=== PATIENT | male | born 1945 | race Caucasian/White ===

== ENCOUNTER 2017-02-01 19:57 | Inpatient (IN) | payer OTHER ==
[~2017-02-01] VITALS: Ht 182.9 cm; Wt 446.3 kg
[2017-02-01 19:57] VITALS: BP 93/63
--- NOTE | 2017-02-01 19:57 | NUR ---
BIBA TO ER BED 8
--- NOTE | 2017-02-01 20:03 | NUR ---
71 Y/O M BIBA FROM HOME W/C/O L SHOULDER/L UPPER BACK PAIN WHICH RADIATES TO L ARM. DENIES ANY CHEST PAIN. VSS, PT IN O2 2 LT. MED HX COPD, AND PROSTATE CANCER.
[2017-02-01] MEDS ORDERED: KETOROLAC 30 MG/ML VIAL IVP ONE (20:15)
[2017-02-01] MEDS ORDERED: NACL 0.9% 1,000 ML IV ONE (20:15)
[2017-02-01] MEDS ORDERED: ASPIRIN 81 MG TAB.CHEW PO ONE (20:15)
--- NOTE | 2017-02-01 20:28 | NUR ---
LAB AT BEDSIDE
[2017-02-01] MEDS ORDERED: TAMS0.4C96 PO (20:39)
[2017-02-01] MEDS ORDERED: ATOR20TA PO (20:39)
[2017-02-01] MEDS ORDERED: TYLENOL PM PO (20:39)
[2017-02-01] MEDS ORDERED: [UNRECOGNIZED DRUG - CODE] PO (20:39)
[2017-02-01] MEDS ORDERED: [UNRECOGNIZED DRUG - CODE] PO (20:39)
[2017-02-01] MEDS ORDERED: ASPI81CT89 PO (20:39)
[2017-02-01] MEDS ORDERED: ALBU1SPR IH (20:39)
[2017-02-01 20:44] LABS: BASOPHILS # (AUTO) 0.4 K/uL (0.00-0.22); EOSINOPHILS # (AUTO) 0.6 K/uL (0-0.4); HEMATOCRIT 36.2 % (36-52); HEMOGLOBIN 12.2 g/dL (12.0-18.0); LYMPHOCYTES # (AUTO) 2.6 K/uL (2.0-11.5); MEAN CORPUSCULAR HEMOGLOBIN 29 pg (27-31); MEAN CORPUSCULAR HGB CONC 34 g/dL (33-37); MEAN CORPUSCULAR VOLUME 86 fL (80-94); MONOCYTES # (AUTO) 0.7 K/uL (0.8-1.0); NEUTROPHILS # (AUTO) 7.3 K/uL (1.8-7.7); PLATELET COUNT (AUTO) 345 K/uL (140-450); RED BLOOD CELL COUNT(AUTO) 4.21 MIL/uL (4.20-6.10); RED CELL DISTRIBUTION WIDTH 14.1 % (11.6-13.7); WHITE BLOOD COUNT (AUTO) 11.6 K/uL (4.8-10.8)
[2017-02-01 20:58] LABS: ANION GAP 11.6 (8-16); CHLORIDE 104 mmol/L (98-107); CREATININE 1.1 mg/dL (0.7-1.3); GLUCOSE 119 mg/dL (74-106); POTASSIUM 3.6 mmol/L (3.5-5.1); SODIUM SERUM 139 mmol/L (136-145); UREA NITROGEN, BLOOD 17 mg/dL (7-18)
[2017-02-01 21:09] LABS: PROTHROMBIN TIME 10.9 secs (10.8-13.4)
[2017-02-01 21:17] LABS: ALBUMIN 2.5 g/dL (3.4-5.0); ASPARTATE AMINOTRANSFERASE 16 U/L (15-37); TOTAL BILIRUBIN 0.3 mg/dL (0.0-1.0)
[2017-02-01] MEDS ORDERED: PIPERACILLIN/TAZOBACTAM 3.375 GM in DEXTROSE 5% 50 ML IV ONE (21:25)
[2017-02-01] MEDS ORDERED: PIPERACILLIN/TAZOBACTAM 3.375 GM VIAL IV ONE (21:41)
--- NOTE | 2017-02-01 22:30 | NUR ---
PT ARRIVED ON THE UNIT VIA GURNEY FROM ER. PT IN STABLE CONDITION. NO S/S OF DISTRESS NOTED. PT PRESENTED TO THE ER WITH C/O PAIN IN THE NECK THAT RADIATED TO L SHOULDER PT DX WITH PNEUMONIA. PT HAS NO C/O PAIN AT THIS TIME AND STATES, "I THINK I JUST GOT MYSELF WORRIED." PT IS AAO4, ON 2L O2 VIA NC. IV TO R HAND 20G PATENT AND INTACT, INFUSING WELL. SKIN IS INTACT, WARM AND DRY TO TOUCH, COLOR WNL. RESPIRATIONS ARE EVEN AND UNLABORED, BOWEL SOUNDS PRESENT. INITIAL ASSESSMENT COMPLETED. PLAN OF CARE DISCUSSED WITH PT AT THE BEDSIDE, ALL SAFETY PRECAUTIONS MET, CALL LIGHT WITHIN REACH, WILL CONTINUE TO MONITOR Addendum: 02/02/17 at 0318 by Rabia Haynes RN CORRECT TIME OF ARRIVAL IS 2330 ON UNIT*
[2017-02-01] MEDS ORDERED: ONDANSETRON 4 MG/2 ML VIAL IVP PRN (22:50)
[2017-02-01] MEDS ORDERED: LEVOFLOXACIN 750 MG/D5W PREMIX 150 ML IV SCH (22:50)
[2017-02-01] MEDS ORDERED: ACETAMINOPHEN 325 MG TAB PO PRN (22:50)
--- NOTE | 2017-02-01 22:54 | NUR ---
Pt resting in bed, vss, in o2 2lt. No other s/s of distress noted at the moment.
[2017-02-01] MEDS ORDERED: DOCUSATE SODIUM 100 MG GELCAP PO PRN (22:55)
--- NOTE | 2017-02-01 23:14 | NUR ---
Patient will be admitted to care of DR ANTONIO. Admited to TELEMETRY. Will go to room 122B. Belongings list completed. Report to SILAS SORIA.
--- NOTE | 2017-02-01 23:29 | NUR ---
PT TRASFERED TO FLOOR VIA GURNEY, ACCOMPANIED BY RN AND EMT. NO S/S OF DISTRESS NOTED UPON D/C.
[2017-02-01 23:30] VITALS: BP 120/79
[2017-02-01] MEDS ORDERED: MORPHINE SULFATE 4 MG/ML SYR IVP PRN (23:45)
[2017-02-02] MEDS: methylPREDNISolone SS 40 MG in WATER STERILE 1 ML IV SCH ×3 (00:23→12:00)
[2017-02-02] MEDS: ALBUTEROL 0.083% 2.5 MG/3 ML NEBU IH SCH ×4 (01:00→13:00)
[2017-02-02] MEDS: IPRATROPIUM 0.02% 0.5 MG/2.5 ML NEBU IH SCH ×3 (01:00→12:59)
--- NOTE | 2017-02-02 01:26 | NUR ---
PT REFUSED HHN TX. PT SAID I DONT THINK I NEED A BREATHING TX AND THAT HE ONLY NEEDS OXYGEN. I EXPLAINED THE BENEFIT OF HAVING THE BREATHING TX BUT HE SAID HE WILL WAIT TILL THE MORNING TO SPEAK TO HIS DR FIRST. ALSO GAVE PT SPUTUM CUP AND EXPLAINED THE PROCEDURE PT VERBALIZED UNDERSTANDING AND WILL LET NURSE KNOW WHEN HE HAS THE SAMPLE. NO SOB OR DISTRESS NOTED. PT ON 2 L NC SPO2 94%. DIMINISHED BS. RN YANG AWARE. WILL CONTINUE TO MONITOR.
[2017-02-02 04:00] VITALS: BP 122/81
[2017-02-02 06:05] LABS: BASOPHILS # (AUTO) 0.1 K/uL (0.00-0.22); BASOPHILS % (AUTO) 0.7 % (0.0-2.0); EOSINOPHILS # (AUTO) 0.1 K/uL (0-0.4); EOSINOPHILS % (AUTO) 1.5 % (0.0-4.0); HEMATOCRIT 37.4 % (36-52); HEMOGLOBIN 12.4 g/dL (12.0-18.0); LYMPHOCYTES # (AUTO) 0.9 K/uL (2.0-11.5); LYMPHOCYTES % (AUTO) 9.6 % (20.5-51.1); MEAN CORPUSCULAR HEMOGLOBIN 29 pg (27-31); MEAN CORPUSCULAR HGB CONC 33 g/dL (33-37); MEAN CORPUSCULAR VOLUME 88 fL (80-94); MONOCYTES # (AUTO) 0.1 K/uL (0.8-1.0); MONOCYTES % (AUTO) 1.4 % (1.7-9.3); NEUTROPHILS # (AUTO) 8.5 K/uL (1.8-7.7); NEUTROPHILS % (AUTO) 86.8 % (42.2-75.2); PLATELET COUNT (AUTO) 308 K/uL (140-450); RED BLOOD CELL COUNT(AUTO) 4.26 MIL/uL (4.20-6.10); RED CELL DISTRIBUTION WIDTH 14.5 % (11.6-13.7); WHITE BLOOD COUNT (AUTO) 9.7 K/uL (4.8-10.8)
[2017-02-02 06:35] LABS: ALBUMIN 2.5 g/dL (3.4-5.0); ANION GAP 12.9 (8-16); ASPARTATE AMINOTRANSFERASE 16 U/L (15-37); CARBON DIOXIDE 23.6 mmol/L (21-32); CHLORIDE 105 mmol/L (98-107); GLUCOSE 124 mg/dL (74-106); POTASSIUM 4.5 mmol/L (3.5-5.1); SODIUM SERUM 137 mmol/L (136-145); TOTAL BILIRUBIN 0.3 mg/dL (0.0-1.0); UREA NITROGEN, BLOOD 20 mg/dL (7-18)
--- NOTE | 2017-02-02 06:55 | NUR ---
ATROVENT NOT TAKEN FROM PIXIS BUT SCANNED NOT GIVEN TO PT INPUT ERROR
[2017-02-02 07:35] LABS: CREATININE 1.3 mg/dL (0.7-1.3)
--- NOTE | 2017-02-02 07:39 | NUR ---
ENDORSED PLAN OF CARE TO AM NURSE FOR CONTINUITY OF CARE, PT IN STABLE CONDITION. NO S/S OF DISTRESS NOTED.
--- NOTE | 2017-02-02 07:40 | NUR ---
RECEIVED REPORT FROM SENIOR DATA ANALYST NURSE YANG AT BEDSIDE FOR CONTINUITY OF CARE. PT IS AWAKE AND ORIENTED. INTRODUCED SELF AND UPDATED BOARD. PT IN STABLE CONDITION.
[2017-02-02 08:00] VITALS: BP 138/77
[2017-02-02] MEDS ORDERED: ENOXAPARIN 30 MG/0.3 ML SYR SUBQ SCH ×2 (09:00)
[2017-02-02] MEDS ORDERED: TAMSULOSIN 0.4 MG CAP PO SCH (09:00)
[2017-02-02] MEDS ORDERED: [UNRECOGNIZED DRUG - OTHER] PO SCH (09:00)
[2017-02-02] MEDS ORDERED: ASPIRIN 81 MG TAB.CHEW PO SCH (09:00)
[2017-02-02] MEDS ORDERED: LEVO750T2 PO (10:17)
--- NOTE | 2017-02-02 10:45 | NUR ---
CM NOTE SPOKE WITH GATO OF [facility] PH# [phone] AND SHE SAID [facility] DOESN'T NEED REVIEWS BECAUSE [facility] IS AT RISK. INITIAL REVIEW FAXED TO [facility] [phone] DEVANG [phone].
[2017-02-02 12:00] VITALS: BP 128/72
--- NOTE | 2017-02-02 12:30 | NUR ---
PT REFUSED IV MED. STATED HE IS GOING HOME TODAY AND WILL NOT NEED MED.
--- NOTE | 2017-02-02 13:00 | NUR ---
PT GOING HOME DECIDED NOT TO DO HHN NO RESP DISTRESS NOTED RETURNED MEDS
--- NOTE | 2017-02-02 13:07 | NUR ---
GAVE PT D/C INSTRUCTIONS, FORMS AND RX ORDER. INFORMED PT OF COPY OF LABS, MEDICATION USE AND SIDE EFFECTS, AND FOLLOW UP INSTRUCTIONS. PT VERBALIZED UNDERSTANDING AND SIGNED FORMS. REMOVED IV CATHETER FROM RIGHT HAND 20G. IV CATHETER TIP INTACT. APPLIED DRESSING AND PRESSURE TO SITE. NO BLEEDING NOTED. ID BAND AND TELE MONITOR REMOVED. PT CHANGED IN OWN CLOTHES AND CALLED FOR GUIDANCE SECRETARY. WILL WAIT FOR RIDE TO GO HOME WITH .
--- NOTE | 2017-02-02 13:30 | NUR ---
PT D/C'D TO GO HOME. LEFT WITH ALL PERSONAL BELONGINGS VIA WHEELCHAIR ACCOMPANIED BY REDEVELOPMENT SPECIALIST AND . PT LEFT IN STABLE CONDITION.
[2017-02-02] MEDS ORDERED: ATORVASTATIN 20 MG TAB PO SCH (21:00)
== END 2017-02-02 13:30 | disposition home or self-care (01) | DRG 190 ==
LOC: MED 19:57 → MTU 22:52
PROVIDERS: ADMIT Hospitalist; ATTEND Hospitalist
DX: J44.0 Chronic obstructive pulmonary disease with (acute) lower respiratory infection (principal); J18.9 Pneumonia, unspecified organism; E88.09 Other disorders of plasma-protein metabolism, not elsewhere classified; Z99.81 Dependence on supplemental oxygen; D64.9 Anemia, unspecified; K76.9 Liver disease, unspecified; Z96.659 Presence of unspecified artificial knee joint; M19.90 Unspecified osteoarthritis, unspecified site; R03.0 Elevated blood-pressure reading, without diagnosis of hypertension; Z85.46 Personal history of malignant neoplasm of prostate; Z88.8 Allergy status to other drugs, medicaments and biological substances; Z86.73 Personal history of transient ischemic attack (TIA), and cerebral infarction without residual deficits; Z90.49 Acquired absence of other specified parts of digestive tract; Z79.82 Long term (current) use of aspirin; Z79.899 Other long term (current) drug therapy; F17.200 Nicotine dependence, unspecified, uncomplicated
CPT/HCPCS: 36415; 71010; 80053; 84484; 85025; 85610; 85730; 87040; 87070; 87081; 87205; 87804; 93005; 94640; 96365; 96375; 99285; J1650; J1885; J1956; J2543; J2920; J7030; J7613; J7644; Q0092

== ENCOUNTER 2017-06-29 11:42 | Inpatient (IN) | payer OTHER ==
[~2017-06-29] VITALS: Ht 182.9 cm; Wt 74.8 kg
[~2017-06-29 11:42] MED LIST: ALBU1SPR IH; ASPI81CT89 PO; ATOR20TA PO; LEVO750T2 PO; TAMS0.4C96 PO; TYLENOL PM PO; [UNRECOGNIZED DRUG - CODE] PO; [UNRECOGNIZED DRUG - CODE] PO
--- NOTE | 2017-06-29 11:44 | NUR ---
PT BIBA FOR PAIN AND BLEEDING TO BED 1
[2017-06-29 11:45] VITALS: BP 121/73
--- NOTE | 2017-06-29 11:50 | NUR ---
72 YO M BIBA W/ C/O HEMATURIA AND RETENTION/PAIN THAT BEGAN 2100 LAST NIGHT 06/28/17. PT REPORTS THAT HE WOKE UP THROUGHOUT THE NIGHT HAVING BLOODY URINE WITH LARGE CLOTS IN HIS DIAPER AND EXCRUTIATING SUPRAPUBIC PAIN THAT GOES ALL THE WAY THROUGH TO THE TIP OF HIS PENIS. PT A&O X 4. GCS 15. CMS INTACT. RESPIRATIONS EVEN AND UNLABORED. LUNG SOUNDS CLEAR BILATERALLY. PT DENIES FEVER/CHILLS AT THIS TIME. BLADDER IS FIRM UPON PALPATION. SKIN INTACT IN THE PUBIC AREA. PT REPORTS THAT HE IS HAVING DIFFICULTY URINATING AND THE PAIN IS UNBEARABLE. ER MD DODD NOTIFIED OF PT STATUS. PT NEEDS MET AT THIS TIME. SAFETY PRECAUTIONS INITIATED. WILL CONTINUE TO MONITOR.
[2017-06-29] MEDS ORDERED: LIDOCAINE VISCOUS 2% 20 ML UDC PO ONE (12:20)
--- NOTE | 2017-06-29 12:37 | NUR ---
PER PATIENT AND MANAGER COMPETITIVE INTELLIGENCE, PATIENT PULLED OUT HSU CATH. THAT WAS INSERTED APPROX. X2WKS. AGO, BY THE UROLOGIST AND NOW HAVING PAIN AND DRIBBLING BLOODY URINE. hX: PROSTATE CANCER. RECIEVING RADIATION TREATMENT . PT STATES MY TAKE CARE OF ME,I HAVE 2-3 DAYS CONSTIPATION,DENIES N/V/D; SKIN IS PINK/WARM/DRY; AAOX4 WITH EVEN AND STEADY GAIT; LUNGS CLEAR BL; HR EVEN AND REGULAR; PT DENIES ANY FEVER, CP, SOB, OR COUGH AT THIS TIME; PATIENT STATES PAIN OF 8/10 AT THIS TIME; PATIENT POSITIONED FOR COMFORT; HOB ELEVATED; BEDRAILS UP X2; BED DOWN. ER MD MADE AWARE OF PT STATUS.PER PT HIS UROLOGIST IS DR. MA
--- NOTE | 2017-06-29 12:42 | NUR ---
CHARGE NURSE AT BEDSIDE, PUTTING HSU CATHETER, PT VITAL SIGN STABLE, HSU 16, DRAINING TO A BLOODY URINE AT THIS TIME, PER PT HE IS MORE COMFORTABLE AT THIS TIME.
--- NOTE | 2017-06-29 12:52 | NUR ---
AT BEDSIDE, ALSO AT BEDSIDE
--- NOTE | 2017-06-29 12:55 | NUR ---
PER MD NO NEED OF URINE DISPSTICK AT THIS TIME
[2017-06-29] MEDS ORDERED: NACL 0.9% 1,000 ML IV SCH (13:02)
[2017-06-29] MEDS ORDERED: MORPHINE SULFATE 2 MG/ML SYR IVP ONE (13:05)
[2017-06-29] MEDS ORDERED: LEVOFLOXACIN 500 MG/D5W PREMIX 100 ML IV ONE (13:05)
[2017-06-29] MEDS ORDERED: ONDANSETRON 4 MG/2 ML VIAL IVP ONE (13:05)
--- NOTE | 2017-06-29 13:09 | NUR ---
PT WENT FOR CT VIA [facility]
[2017-06-29] MEDS ORDERED: MORPHINE SULFATE 4 MG/ML SYR ONE (13:20)
--- NOTE | 2017-06-29 13:31 | NUR ---
LAB AT BEDSIDE
[2017-06-29 13:46] LABS: BASOPHILS # (AUTO) 0.1 K/uL (0.00-0.22); BASOPHILS % (AUTO) 0.9 % (0.0-2.0); EOSINOPHILS # (AUTO) 0.7 K/uL (0-0.4); EOSINOPHILS % (AUTO) 4.6 % (0.0-4.0); HEMATOCRIT 41.6 % (36-52); HEMOGLOBIN 13.7 g/dL (12.0-18.0); LYMPHOCYTES # (AUTO) 0.8 K/uL (2.0-11.5); LYMPHOCYTES % (AUTO) 5.4 % (20.5-51.1); MEAN CORPUSCULAR HEMOGLOBIN 30 pg (27-31); MEAN CORPUSCULAR HGB CONC 33 g/dL (33-37); MEAN CORPUSCULAR VOLUME 90.3 fL (80-94); MONOCYTES # (AUTO) 1.1 K/uL (0.8-1.0); MONOCYTES % (AUTO) 7.4 % (1.7-9.3); NEUTROPHILS # (AUTO) 12.7 K/uL (1.8-7.7); NEUTROPHILS % (AUTO) 81.7 % (42.2-75.2); PLATELET COUNT (AUTO) 441 K/uL (140-450); RED CELL DISTRIBUTION WIDTH 15.4 % (11.6-13.7); WHITE BLOOD COUNT (AUTO) 15.5 K/uL (4.8-10.8)
--- NOTE | 2017-06-29 13:56 | NUR ---
PT DRINKING COFFEE AT THIS TIME, ASK MD CREWS IF PT CAN HAVE COFFEE PER MD OK TO HAVE COFFEE, CUP OF COFFEEE GIVEN ALSO TO THE
[2017-06-29 14:03] LABS: ALBUMIN 2.9 g/dL (3.4-5.0); AMYLASE 61 U/L (25-115); ANION GAP 13.8 (8-16); ASPARTATE AMINOTRANSFERASE 14 U/L (15-37); CARBON DIOXIDE 24.5 mmol/L (21-32); CHLORIDE 102 mmol/L (98-107); CREATININE 2.7 mg/dL (0.7-1.3); GLUCOSE 114 mg/dL (74-106); LIPASE 109 U/L (73-393); SODIUM SERUM 134 mmol/L (136-145); TOTAL BILIRUBIN 0.3 mg/dL (0.0-1.0); UREA NITROGEN, BLOOD 57 mg/dL (7-18)
[2017-06-29 14:07] LABS: POTASSIUM 6.3 mmol/L (3.5-5.1)
--- NOTE | 2017-06-29 14:12 | NUR ---
CRITICAL LAB VALUE RECEIVED FROM TONY. POTASSIUM HIGH 6.3. ER MD DODD NOTIFIED. NO NEW ORDERS AT THIS TIME. WAITING FOR PENDING LABS FOR CREATININE. WILL CONTINUE TO MONITOR.
[2017-06-29 14:17] LABS: APPEARANCE,URINE TURBID (CLEAR); BILIRUBIN,URINE NEGATIVE (NEGATIVE); BLOOD, URINE 3+ (NEGATIVE); COLOR,URINE RED (YELLOW); LEUKOCYTE ESTERASE ,URINE NEGATIVE (NEGATIVE); NITRITE, URINE NEGATIVE (NEGATIVE); PH,URINE 6.5 (5.0-9.0); UGLUCOSE NEGATIVE (NEGATIVE)
[2017-06-29 14:28] LABS: RBC,URINE TOO NUMEROUS TO COUN /HPF (0-5); WBC,URINE 0-5 (RARE) /HPF (0-5)
[2017-06-29] MEDS ORDERED: ALBUTEROL SULFATE/IPRATROPIU 3 ML SOL IH ONE (15:25)
[2017-06-29] MEDS ORDERED: SODIUM BICARBONATE 8.4% PFS 50 MEQ/50 ML SYR IVP ONE (15:25)
[2017-06-29] MEDS ORDERED: SODIUM POLYSTYRENE 15 GM/60 ML UDBTL PO ONE (15:25)
[2017-06-29] MEDS ORDERED: DEXTROSE 50% 50 ML SYR IVP ONE (15:30)
[2017-06-29] MEDS ORDERED: INSULIN REGULAR, HUMAN 100 UNIT/ML VIAL SUBQ ONE (15:30)
[2017-06-29] MEDS ORDERED: ACETAMINOPHEN 325 MG TAB PO PRN (15:45)
[2017-06-29] MEDS ORDERED: ONDANSETRON 4 MG/2 ML VIAL IVP PRN (15:45)
[2017-06-29] MEDS ORDERED: MORPHINE SULFATE 4 MG/ML SYR IVP PRN (15:45)
--- NOTE | 2017-06-29 16:04 | NUR ---
PT AWARE WILL GO TO [facility] PT AAO, WENT HOME, VITAL SIGN STABLE, HSU DRAINING TO A REDDISH URINE,
--- NOTE | 2017-06-29 16:10 | NUR ---
PER GIVE HUMULIN REGULAR INSULIN VIA IV, WITNESS BY CHARGE NURSE ANN
[2017-06-29 16:40] VITALS: BP 92/54
--- NOTE | 2017-06-29 16:40 | NUR ---
PATIENT ARRIVED ON MST UNIT FROM ER VIA WHEELCHAIR. PATIENT ABLE TO AMBULATE FROM WHEELCHAIR TO [facility] BED WITH CANE. PATIENT IN STABLE CONDITION. NO DISTRESS NOTED. PAIN WITHIN TOLERABLE AT THIS TIME. AAOX4, CALM, COOPERATIVE, SKIN COLOR APPROPRIATE TO ETHNICITY, WARM TO TOUCH. SKIN IS INTACT, BLANCHEABLE REDNESS NOTED ON BUTTOCKS. ABDOMEN SOFT, NON-DISTENDED. LUNGS CTA ON ALL LOBES. ORIENTED PATIENT TO ROOM AND CALL LIGHT. IV SITE INTACT, PATENT, AND ON SALINE LOCK AT THIS TIME. REVIEWED PLAN OF CARE WITH PATIENT. PATIENT VERBALIZED UNDERSTANDING. SAFETY MEASURES IN PLACE, CALL LIGHT WITHIN REACH. WILL CONTINUE TO MONITOR.
--- NOTE | 2017-06-29 16:43 | NUR ---
Patient will be admitted to care of SILAS Sotelo. Admited to Tele. Will go to room 106-A. Belongings list completed. Pt tolerated transfer well.
[2017-06-29] MEDS: NACL 0.9% 1,000 ML IV SCH (18:05)
--- NOTE | 2017-06-29 18:30 | NUR ---
PATIENT SITTING IN BED WITH DINNER TRAY IN FRONT. NO DISTRESS NOTED. DENIES ANY PAIN AT THIS TIME. SAFETY MEASURES IN PLACE, CALL LIGHT WITHIN REACH. WILL CONTINUE TO MONITOR.
[2017-06-29 19:10] LABS: ANION GAP 14.7 (8-16); CARBON DIOXIDE 22.9 mmol/L (21-32); CHLORIDE 104 mmol/L (98-107); CREATININE 2.3 mg/dL (0.7-1.3); GLUCOSE 120 mg/dL (74-106); POTASSIUM 4.6 mmol/L (3.5-5.1); SODIUM SERUM 137 mmol/L (136-145); UREA NITROGEN, BLOOD 52 mg/dL (7-18)
--- NOTE | 2017-06-29 19:35 | NUR ---
GAVE REPORT TO DIESEL MECHANIC FARM NURSE FOR CONTINUITY OF CARE. PATIENT IN STABLE CONDITION.
--- NOTE | 2017-06-29 19:37 | NUR ---
RECEIVED REPORT FROM DAY RN. PT RESTING IN BED. AAOX4. NO S/S OF ACUTE DISTRESS. PT DENIES PAIN. IV SITE PATENT AND INTACT. CALL LIGHT WITHIN REACH. SAFETY MEASURES ENSURED.WILL CONTINUE TO MONITOR.
[2017-06-29 21:18] VITALS: BP 97/51
[2017-06-29] MEDS: HYDROcodone/APAP 5/325 MG 1 TAB TAB PO PRN (23:19)
--- NOTE | 2017-06-29 23:57 | NUR ---
PT RESTING IN BED. NO S/S OF ACUTE DISTRESS. CALL LIGHT WITHIN REACH. SAFETY MEASURES ENSURED. WILL CONTINUE TO MONITOR.
[2017-06-30] VITALS: BP 99/56
--- NOTE | 2017-06-30 03:22 | NUR ---
PT RESTING IN BED. NO S/S OF ACUTE DISTRESS. PT STATES PAIN IS TOLERABLE. CALL LIGHT WITHIN REACH. SAFETY MEASURES ENSURED. WILL CONTINUE TO MONITOR.
[2017-06-30 04:00] VITALS: BP 98/57
[2017-06-30] MEDS: HYDROcodone/APAP 5/325 MG 1 TAB TAB PO PRN ×5 (04:36→23:08)
[2017-06-30] MEDS: NACL 0.9% 1,000 ML IV SCH ×2 (05:03→16:22)
[2017-06-30 06:45] LABS: BASOPHILS # (AUTO) 0.1 K/uL (0.00-0.22); BASOPHILS % (AUTO) 0.8 % (0.0-2.0); EOSINOPHILS % (AUTO) 9.5 % (0.0-4.0); HEMATOCRIT 37.1 % (36-52); HEMOGLOBIN 12.2 g/dL (12.0-18.0); LYMPHOCYTES % (AUTO) 9.5 % (20.5-51.1); MEAN CORPUSCULAR HEMOGLOBIN 30 pg (27-31); MEAN CORPUSCULAR HGB CONC 33 g/dL (33-37); MEAN CORPUSCULAR VOLUME 90.6 fL (80-94); MONOCYTES % (AUTO) 9.6 % (1.7-9.3); NEUTROPHILS # (AUTO) 7.7 K/uL (1.8-7.7); NEUTROPHILS % (AUTO) 70.6 % (42.2-75.2); PLATELET COUNT (AUTO) 377 K/uL (140-450); RED CELL DISTRIBUTION WIDTH 15.3 % (11.6-13.7); WHITE BLOOD COUNT (AUTO) 10.9 K/uL (4.8-10.8)
--- NOTE | 2017-06-30 07:14 | NUR ---
ENDORSED PLAN OF CARE TO NIGHT RN. PT STABLE.
--- NOTE | 2017-06-30 07:15 | NUR ---
RECEIVED REPORT FROM SOFTWARE VALIDATION ENGINEER NURSE. PATIENT LYING DOWN IN BED SLEEPING, AROUSABLE BY VOICE. NO DISTRESS NOTED. DENIES ANY PAIN AT THIS TIME. RESPIRATIONS EVEN, UNLABORED, ON ROOM AIR. O2 VIA NC AT BEDSIDE IF NEEDED. AAOX4, CALM, COOPERATIVE, SKIN COLOR APPROPRIATE TO ETHNICITY, WARM TO TOUCH. SKIN IS INTACT, BLANCHABLE REDNESS NOTED ON BUTTOCKS. LUNGS CTA ON ALL LOBES. ABDOMEN SOFT, NON-DISTENDED. IV SITE INTACT, PATENT, AND INFUSING IVF PER ORDERS. REVIEWED PLAN OF CARE WITH PATIENT. PATIENT VERBALIZED UNDERSTANDING. SAFETY MEASURES IN PLACE, CALL LIGHT WITHIN REACH. WILL CONTINUE TO MONITOR.
--- NOTE | 2017-06-30 07:16 | NUR ---
PATIENT HAS HSU CATHETER IN PLACE, HEMATURIA NOTED WITH BRIGHT RED/ORANGE URINE NOTED. WILL CONTINUE TO MONITOR.
[2017-06-30 08:00] VITALS: BP 96/63
[2017-06-30] MEDS: ATORVASTATIN 20 MG TAB PO SCH (08:45)
[2017-06-30] MEDS: TAMSULOSIN 0.4 MG CAP PO SCH (08:45)
--- NOTE | 2017-06-30 08:58 | NUR ---
PATIENT SITTING IN BED WATCHING TV. NO DISTRESS NOTED. COMPLAINTS OF PELVIC/TIP OF PENIS PAIN. GIVEN NORCO PER ORDERS. OTHER SCHEDULED MEDICATIONS DUE GIVEN. CONTINUES TO HAVE HEMATURIA, HOWEVER, RED COLOR IS GETTING NURSE EMERGENCY COMPARED TO YESTERDAY. SAFETY MEASURES IN PLACE, CALL LIGHT WITHIN REACH. WILL CONTINUE TO MONITOR.
--- NOTE | 2017-06-30 10:18 | NUR ---
PATIENT HAS BEEN SCREENED AND CATEGORIZED MODERATE NUTRITION RISK. PATIENT WILL BE SEEN WITHIN 3-5 DAYS OF ADMISSION. 07/02/17 - 07/04/[address]
[2017-06-30 10:23] LABS: ANION GAP 16.9 (8-16); CARBON DIOXIDE 22.3 mmol/L (21-32); CHLORIDE 104 mmol/L (98-107); GLUCOSE 96 mg/dL (74-106); POTASSIUM 4.2 mmol/L (3.5-5.1); SODIUM SERUM 139 mmol/L (136-145); UREA NITROGEN, BLOOD 49 mg/dL (7-18)
--- NOTE | 2017-06-30 10:59 | NUR ---
CM NOTE INITIAL REVIEW FAXED TO [facility] [phone] DEVANG PH# [phone] ROQUE JIMENEZ PH# [phone]
--- NOTE | 2017-06-30 11:00 | NUR ---
PATIENT LYING DOWN IN BED SLEEPING, AROUSABLE BY VOICE. NO DISTRESS NOTED. DENIES ANY PAIN AT THIS TIME. WILL CONTINUE TO MONITOR.
[2017-06-30 11:03] LABS: CREATININE 2.1 mg/dL (0.7-1.3)
[2017-06-30 12:00] VITALS: BP 146/63
--- NOTE | 2017-06-30 12:30 | NUR ---
PATIENT SITTING IN BED WITH LUNCH TRAY, NO DISTRESS NOTED. PAIN WITHIN TOLERABLE AT THIS TIME. SAFETY MEASURES IN PLACE, CALL LIGHT WITHIN REACH. WILL CONTINUE TO MONITOR.
--- NOTE | 2017-06-30 13:31 | NUR ---
PATIENT LYING DOWN IN BED SLEEPING, AROUSABLE BY VOICE. NO DISTRESS NOTED. PAIN WITHIN TOLERABLE AT THIS TIME. WILL CONTINUE TO MONITOR.
--- NOTE | 2017-06-30 14:01 | NUR ---
PATIENT COMPLAINS OF PAIN IN PELVIC/PENILE AREA, NORCO GIVEN PER ORDERS. SAFETY MEASURES IN PLACE, CALL LIGHT WITHIN REACH. WILL CONTINUE TO MONITOR.
[2017-06-30 16:00] VITALS: BP 93/56
--- NOTE | 2017-06-30 16:26 | NUR ---
DR. PALENCIA AT BEDSIDE REVIEWING PLAN OF CARE WITH PATIENT. WILL CONTINUE TO MONITOR.
--- NOTE | 2017-06-30 18:00 | NUR ---
PATIENT SITTING IN BED WATCHING TV. NO DISTRESS NOTED. PAIN WITHIN TOLERABLE. DR. GUTIERREZ AT BEDSIDE REVIEWING PLAN OF CARE WITH PATIENT. WILL CONTINUE TO MONITOR.
--- NOTE | 2017-06-30 19:25 | NUR ---
GAVE REPORT TO CHERRY DIPPER NURSE FOR CONTINUITY OF CARE. PATIENT IN STABLE CONDITION.
--- NOTE | 2017-06-30 19:26 | NUR ---
RECEIVED BEDSIDE REPORT FROM DAY SHIFT NURSE KRIS RN, PT STABLE, NO DISTRESS NOTED, IV TO R WRIST 24G RUNNING NS @ 75ML/HR, INFUSING WELL, PT ON ROOM AIR NO SOB, HSU IN PLACE DRAINING DARK ANA COLORED URINE, PT DENIES ANY PAIN AT THIS MOMENT, INITIAL ASSESSMENT DONE, ALL SAFETY PRECAUTION MET, WILL CONTINUE TO MONITOR.
--- NOTE | 2017-06-30 19:50 | NUR ---
CHECKED ON PT, PT RESTING ON BED, NO DISTRESS NOTED, STATED HAVING NO PAIN AT THIS MOMENT, V/S TAKEN, WNL, CALL LIGHT WITHIN REACH, WILL CONTINUE TO MONITOR.
[2017-06-30 20:00] VITALS: BP 97/51
--- NOTE | 2017-06-30 21:50 | NUR ---
CHECKED ON PT, PT SLEEPING, NO DISTRESS NOTED, CALL LIGHT WITHIN REACH, WILL CONTINUE TO MONITOR.
--- NOTE | 2017-06-30 23:08 | NUR ---
PT AMBULATED TO RESTROOM AND BACK TO BED, STATED HAVING PAIN ON THE LOWER ABD AND PENILE AREA, PAIN MEDICATION GIVEN PT TOLERATED WELL, NO DISTRESS NOTED, CALL LIGHT WITHIN REACH, WILL CONTINUE TO MONITOR.
[2017-07-01] VITALS: BP 101/56
--- NOTE | 2017-07-01 02:10 | NUR ---
CHECKED ON PT, PT SLEEPING. NO DISTRESS NOTED, CALL LIGHT WITHIN REACH, WILL CONTINUE TO MONITOR.
[2017-07-01] MEDS: HYDROcodone/APAP 5/325 MG 1 TAB TAB PO PRN ×2 (03:08→06:55)
[2017-07-01 04:00] VITALS: BP 94/48
--- NOTE | 2017-07-01 04:10 | NUR ---
CHECKED ON PT, PT SLEEPING, NO DISTRESS NOTED, CALL LIGHT WITHIN REACH, WILL CONTINUE TO MONITOR.
[2017-07-01 07:17] LABS: BASOPHILS # (AUTO) 0.1 K/uL (0.00-0.22); BASOPHILS % (AUTO) 0.8 % (0.0-2.0); EOSINOPHILS # (AUTO) 1.1 K/uL (0-0.4); EOSINOPHILS % (AUTO) 11.8 % (0.0-4.0); HEMATOCRIT 32.6 % (36-52); HEMOGLOBIN 10.8 g/dL (12.0-18.0); LYMPHOCYTES # (AUTO) 0.8 K/uL (2.0-11.5); LYMPHOCYTES % (AUTO) 8.3 % (20.5-51.1); MEAN CORPUSCULAR HEMOGLOBIN 30 pg (27-31); MEAN CORPUSCULAR HGB CONC 33 g/dL (33-37); MEAN CORPUSCULAR VOLUME 90.5 fL (80-94); MONOCYTES # (AUTO) 0.8 K/uL (0.8-1.0); MONOCYTES % (AUTO) 8.1 % (1.7-9.3); NEUTROPHILS # (AUTO) 6.8 K/uL (1.8-7.7); PLATELET COUNT (AUTO) 312 K/uL (140-450); RED CELL DISTRIBUTION WIDTH 15.2 % (11.6-13.7); WHITE BLOOD COUNT (AUTO) 9.6 K/uL (4.8-10.8)
[2017-07-01] MEDS: NACL 0.9% 1,000 ML IV SCH (07:24)
--- NOTE | 2017-07-01 07:28 | NUR ---
ENDORSED PLAN OF CARE TO DAY SHIFT NURSE ADY RN, PT STABLE, NO DISTRESS NOTED, CALL LIGHT WITHIN REACH.
--- NOTE | 2017-07-01 07:29 | NUR ---
RECEIVED REPORT FROM BILLING CHECKER RN. PATIENT IS AAOX4, HAS NO SIGNS AND SYMPTOMS OF ACUTE DISTRESS NOTED AT THIS TIME. PATIENT HAS IV TO THE RIGHT HAND 24G INFUSING NS AT 75 ML/HR. SITE IS CLEAN, DRY, PATENT AND INTACT. PATIENT HAS HSU CATHETER IN PLACE DRAINING TO GRAVITY. DISCUSSED PLAN OF CARE WITH PATIENT AND HE VERBALIZED UNDERSTANDING. HE AMBULATES WITH A WALKER. FALL RISK PROTOCOL IN PLACE. BED IN LOWEST POSITION, SIDE RAILS UP X2, CALL LIGHT PLACED WITHIN REACH. WILL CONTINUE TO MONITOR.
[2017-07-01 07:34] LABS: ANION GAP 14.1 (8-16); CARBON DIOXIDE 22.3 mmol/L (21-32); CHLORIDE 106 mmol/L (98-107); CREATININE 1.3 mg/dL (0.7-1.3); GLUCOSE 100 mg/dL (74-106); POTASSIUM 3.4 mmol/L (3.5-5.1); SODIUM SERUM 139 mmol/L (136-145); UREA NITROGEN, BLOOD 29 mg/dL (7-18)
[2017-07-01 08:00] VITALS: BP 103/50
[2017-07-01] MEDS: TAMSULOSIN 0.4 MG CAP PO SCH (08:25)
[2017-07-01] MEDS: ATORVASTATIN 20 MG TAB PO SCH (08:25)
[2017-07-01] MEDS ORDERED: POTASSIUM CHLORIDE 10 MEQ TABER PO SCH (09:25)
[2017-07-01] MEDS ORDERED: ACET-2869 PO (09:53)
[2017-07-01] MEDS ORDERED: CIPR500T4 PO (09:53)
[2017-07-01] MEDS ORDERED: [UNRECOGNIZED DRUG - CODE] PO (09:53)
[2017-07-01] MEDS ORDERED: METR500T1 PO (09:53)
--- NOTE | 2017-07-01 11:20 | NUR ---
DISCHARGE ORDER IS IN PLACE. INFORMED PATIENT THAT HE HAS PRESCRIPTIONS IN HIS PACKETS. EDUCATED HIM ON FOLLOWING UP WITH PRIMARY CARE PHYSICIAN AND UROLOGIST. ALSO ON SIGNS AND SYMPTOMS OF DISTRESS TO SEEK EMERGENCY MEDICAL ATTENTION. CHANGED PATIENTS HSU BAG TO A LEG BAG. PATIENT TOLERATED WELL. REMOVED IV FROM SITE AND STOPPED INFUSION AT THIS TIME. SITE IS CLEAN AND DRY, CATHETER INTACT. ALL BELONGINGS ARE WITH THE PATIENT. REMOVED ID BAND. WILL WHEEL PATIENT OUT.
--- NOTE | 2017-07-01 13:11 | NUR ---
Social Service Note: I received a call from renal case manager Geno from [place] , she requested RN clinical review, I explained to her that this weekend we do not have any RN case maker available and offered to fax her any clinical information, however, she stated she was going to contact and obtain information from him.
== END 2017-07-01 11:20 | disposition home or self-care (01) | DRG 699 ==
LOC: MED 11:42 → MTU 15:48
PROVIDERS: ADMIT Internal Medicine Pulmonary Disease; ATTEND Internal Medicine Pulmonary Disease
DX: T83.83XA Hemorrhage due to genitourinary prosthetic devices, implants and grafts, initial encounter (principal); E87.1 Hypo-osmolality and hyponatremia; N17.9 Acute kidney failure, unspecified; E44.0 Moderate protein-calorie malnutrition; E87.5 Hyperkalemia; N13.30 Unspecified hydronephrosis; K57.32 Diverticulitis of large intestine without perforation or abscess without bleeding; R65.10 Systemic inflammatory response syndrome (SIRS) of non-infectious origin without acute organ dysfunction; N30.91 Cystitis, unspecified with hematuria; C61 Malignant neoplasm of prostate; J44.9 Chronic obstructive pulmonary disease, unspecified; N20.0 Calculus of kidney; Y84.8 Other medical procedures as the cause of abnormal reaction of the patient, or of later complication, without mention of misadventure at the time of the procedure; Y92.89 Other specified places as the place of occurrence of the external cause; Z66 Do not resuscitate; E78.00 Pure hypercholesterolemia, unspecified; Z96.659 Presence of unspecified artificial knee joint; F17.210 Nicotine dependence, cigarettes, uncomplicated; N40.0 Benign prostatic hyperplasia without lower urinary tract symptoms; E78.5 Hyperlipidemia, unspecified; Z92.3 Personal history of irradiation; Z88.8 Allergy status to other drugs, medicaments and biological substances; Z86.73 Personal history of transient ischemic attack (TIA), and cerebral infarction without residual deficits; Z90.49 Acquired absence of other specified parts of digestive tract; N18.9 Chronic kidney disease, unspecified; I12.9 Hypertensive chronic kidney disease with stage 1 through stage 4 chronic kidney disease, or unspecified chronic kidney disease
CPT/HCPCS: 36415; 80048; 80053; 81001; 82150; 83690; 84100; 85025; 87081; 87086; 94640; J1815; J1956; J2270; J2405; J7030; J7620